=== PATIENT | female | born 1990 | race American Indian/Alaskan Native ===

== ENCOUNTER 2021-08-08 03:01 | Emergency (ER) | payer SELFPAY ==
[2021-08-08 03:06] VITALS: BP 116/73
[2021-08-08] MEDS ORDERED: predniSONE 50 MG TAB PO STA (03:35)
[2021-08-08] MEDS ORDERED: IPRATROPIUM/ALBUTEROL SULFATE 3 ML AMPUL.NEB IH ONE (03:35)
[2021-08-08] MEDS ORDERED: diphenhydrAMINE 50 MG/ML VIAL IM ONE (03:35)
[2021-08-08 04:02] LABS: Basophils # (Auto) 0.1 K/mm3 (0.0-0.1); Basophils % (Auto) 0.9 % (0.0-1.8); Eosinophils # (Auto) 0.5 K/mm3 (0.0-0.4); Eosinophils % (Auto) 5.6 % (0.0-4.3); Hematocrit 44.5 % (30.3-42.9); Hemoglobin 14.5 gm/dl (10.1-14.3); Lymphocytes # (Auto) 3.5 K/mm3 (1.2-5.4); Lymphocytes % (Auto) 38.1 % (13.4-35.0); Mean Corpuscular HGB Conc 33 % (30-34); Mean Corpuscular Volume 82 fl (79-97); Monocytes # (Auto) 0.6 K/mm3 (0.0-0.8); Monocytes % (Auto) 6.1 % (0.0-7.3); Platelet Count 208 K/mm3 (140-440); Red Blood Count 5.46 M/mm3 (3.65-5.03); Red Cell Distribution Width 13.4 % (13.2-15.2)
--- NOTE | 2021-08-08 04:16 | XRay Report ---
CHEST 2 VIEWS INDICATION / CLINICAL INFORMATION: sob. COMPARISON: None available. FINDINGS: SUPPORT DEVICES: None. HEART / MEDIASTINUM: No significant abnormality. LUNGS / PLEURA: No significant pulmonary abnormality. No significant pleural effusion. No pneumothora x. ADDITIONAL FINDINGS: No significant additional findings. IMPRESSION: 1. No acute abnormality of the chest. Signer Name: Travis Stiles MD Signed: 08/08/2021 4:12 AM Workstation Name: [id number]
[2021-08-08 04:17] LABS: Blood Urea Nitrogen 14 mg/dL (7-17); Calcium 9.2 mg/dL (8.4-10.2); Hemolysis Index 6
[2021-08-08 04:18] LABS: BUN/Creatinine Ratio 20
[2021-08-08] MEDS ORDERED: POTASSIUM CHLORIDE ER 20 MEQ TAB PO ONE (04:56)
--- NOTE | 2021-08-08 06:15 | Emergency Department Report ---
ED Asthma HPI - General Chief Complaint: Adult Asthma Stated Complaint: Shortness of breath PUI?: No Time Seen by Provider: 08/08/21 06:04 Source: patient, RN notes reviewed Mode of arrival: Ambulatory Limitations: No Limitations - History of Present Illness Initial Comments: The patient is a pleasant 31-year-old female, who reports that she is not , who reports a history of reactive airways disease/asthma, who presents to the ER today with a complaint of painless asthma exacerbation, after being exposed to a cat/feline. Patient is not COVID-19 vaccinated. She denies loss of taste and smell. Patient denies travel, surgery, immobilization, leg pain or leg swelling. She denies a personal/family history of DVT/PE. She was medicated prior to my personal evaluation, and reports that she feels back to her baseline, and reports readiness for discharge. MD Complaint: "asthma attack", shortness of breath, wheezing -: Sudden Asthma History: childhood onset Severity: moderate Context: pet exposure - Related Data Previous Rx's Medication Instructions Recorded Last Taken Type Albuterol Sulfate [Proair 90 mcg IH Q4HR PRN #2 aer.pow.ba 08/08/21 Unknown Rx Respiclick] EPINEPHrine [Epipen 2-Gilberto] 0.3 mg IM DAILY PRN #2 ml 08/08/21 Unknown Rx Potassium Chloride [K-Dur] 20 meq PO BID #30 tab 08/08/21 Unknown Rx predniSONE [Deltasone] 40 mg PO QDAY #8 tab 08/08/21 Unknown Rx Allergies Allergy/AdvReac Type Severity Reaction Status Date / Time azithromycin [From Zithromax] Allergy Hives Verified 08/08/21 03:03 ibuprofen Allergy Hives Verified 08/08/21 03:03 ED Review of Systems ROS: Stated complaint: TROUBLE BREATHING Other details as noted in HPI Constitutional: denies: fever Eyes: denies: eye discharge ENT: congestion Respiratory: cough, shortness of breath Cardiovascular: denies: syncope Gastrointestinal: denies: abdominal pain Musculoskeletal: denies: back pain Neurological: denies: weakness Hematological/Lymphatic: denies: easy bleeding ED Past Medical Hx - Past Medical History Hx Asthma: Yes - Surgical History Past Surgical History?: No - Medications Home Medications: Home Medications Medication Instructions Recorded Confirmed Last Taken Type Albuterol Sulfate [Proair 90 mcg IH Q4HR PRN #2 aer.pow.ba 08/08/21 Unknown Rx Respiclick] EPINEPHrine [Epipen 2-Gilberto] 0.3 mg IM DAILY PRN #2 ml 08/08/21 Unknown Rx Potassium Chloride [K-Dur] 20 meq PO BID #30 tab 08/08/21 Unknown Rx predniSONE [Deltasone] 40 mg PO QDAY #8 tab 08/08/21 Unknown Rx ED Physical Exam - General Limitations: No Limitations General appearance: alert, in no apparent distress - Head Head exam: Present: atraumatic, normocephalic - Eye Eye exam: Present: normal appearance, EOMI. Absent: nystagmus - ENT ENT exam: Present: normal exam, normal orophraynx, mucous membranes moist, normal external ear exam - Neck Neck exam: Present: normal inspection, full ROM. Absent: tenderness, meningismus - Respiratory Respiratory exam: Present: normal lung sounds bilaterally. Absent: respiratory distress, wheezes, rales, rhonchi, stridor, decreased breath sounds - Cardiovascular Cardiovascular Exam: Present: regular rate, normal rhythm, normal heart sounds. Absent: bradycardia, tachycardia, irregular rhythm, systolic murmur, diastolic murmur, rubs, gallop - GI/Abdominal GI/Abdominal exam: Present: soft, normal bowel sounds. Absent: distended, tenderness, guarding, rebound, rigid, pulsatile mass - Extremities Exam Extremities exam: Present: normal inspection, full ROM, other (2+ pulses noted in the bilateral upper and lower extremities. There is no palpable cord. negative Homans sign. Muscular compartments are soft. The pelvis is stable.). Absent: pedal edema, calf tenderness - Back Exam Back exam: Present: normal inspection, full ROM. Absent: tenderness, CVA tenderness (R), CVA tenderness (L), paraspinal tenderness, vertebral tenderness - Neurological Exam Neurological exam: Present: alert, oriented X3, normal gait, other (No facial droop. Tongue midline. Extraocular movements intact bilaterally. Facial sensation intact to light touch in V1, V2, V3 distribution bilaterally. 5 and a 5 strength in 4 extremities. Sensation intact to light touch in 4 ex tremities.). Absent: motor sensory deficit - Psychiatric Psychiatric exam: Present: normal affect, normal mood - Skin Skin exam: Present: warm, dry, intact, normal color. Absent: rash ED Course Vital Signs 08/08/21 08/08/21 03:03 06:46 Temperature 98.2 F Pulse Rate 79 Respiratory 18 Rate Blood Pressure 116/73 [Right] O2 Sat by Pulse 100 Oximetry O2 Sat by Pulse 99 Oximetry [ Digit-Finger] - Pulse Oximetry Interpretation Digit-Finger Initial Pulse Oximetry Readin O2 Sat by Pulse Oximetry: 99 Actions Taken: none ED Medical Decision Making - Lab Data Result diagrams: 08/08/21 03:50 08/08/21 03:50 Vital Signs 08/08/21 03:03 Temperature 98.2 F Pulse Rate 79 Respiratory 18 Rate Blood Pressure 116/73 [Right] O2 Sat by Pulse 100 Oximetry Lab Results 08/08/21 08/08/21 08/08/21 Range/Units 03:50 03:50 03:50 WBC 9.2 (4.5-11.0) K/mm3 RBC 5.46 H (3.65-5.03) M/mm3 Hgb 14.5 H (10.1-14.3) gm/dl Hct 44.5 H (30.3-42.9) % MCV 82 (79-97) fl MCH 27 L (28-32) pg MCHC 33 (30-34) % RDW 13.4 (13.2-15.2) % Plt Count 208 (140-440) K/mm3 Lymph % (Auto) 38.1 H (13.4-35.0) % Kaufman % (Auto) 6.1 (0.0-7.3) % Eos % (Auto) 5.6 H (0.0-4.3) % Baso % (Auto) 0.9 (0.0-1.8) % Lymph # (Auto) 3.5 (1.2-5.4) K/mm3 Kaufman # (Auto) 0.6 (0.0-0.8) K/mm3 Eos # (Auto) 0.5 H (0.0-0.4) K/mm3 Baso # (Auto) 0.1 (0.0-0.1) K/mm3 Seg Neutrophils % 49.3 (40.0-70.0) % Seg Neutrophils # 4.5 (1.8-7.7) K/mm3 D-Dimer 291.39 H (0-234) ng/mlDDU Sodium 138 (137-145) mmol/L Potassium 2.8 L* (3.6-5.0) mmol/L Chloride 98.5 (98-107) mmol/L Carbon Dioxide 21 L (22-30) mmol/L Anion Gap 21 mmol/L BUN 14 (7-17) mg/dL Creatinine 0.7 (0.6-1.2) mg/dL Estimated GFR > 60 ml/min BUN/Creatinine Ratio 20 % Glucose 102 H (65-100) mg/dL Calcium 9.2 (8.4-10.2) mg/dL - EKG Data -: EKG Interpreted by Nc EKG shows normal: sinus rhythm Rate: normal - EKG Data When compared to previous EKG there are: previous EKG unavailable 08/08/21 06:40 The EKG is interpreted at 06: 2 2 No prior available for comparison. Sinus rhythm, rate 74 bpm. Normal axis, QTC 4 4 6 ms. Motion artifact. Not a STEMI. Unremarkable EKG - Radiology Data Radiology results: pending, report reviewed, image reviewed CHEST 2 VIEWS INDICATION / CLINICAL INFORMATION: sob. COMPARISON: None available. FINDINGS: SUPPORT DEVICES: None. HEART / MEDIASTINUM: No si gnificant abnormality. LUNGS / PLEURA: No significant pulmonary abnormality. No significant pleural effusion. No pneumothorax. ADDITIONAL FINDINGS: No significant additional findings. IMPRESSION: 1. No acute abnormality of the chest. Signer Name: Travis Stiles MD Signed: 08/08/2021 3:12 AM Workstation Name: [id number] - Medical Decision Making Differential diagnosis, including but not limited to: Reactive airways disease, now resolved Bronchitis, pneumonia, mild allergic reaction Assessment and plan: 31-year-old female, who reports that she is not , w ho reports that she has not delivered her given within the past 6 weeks, who denies oral contraceptive use, travel, surgery, immobilization, leg pain or leg swelling, denies DVT/pulmonary embolism risk factors and personal/family history of DVT and PE, who is not currently tachycardic, tachypneic or hypoxic, who is low risk by Wells criteria for pulmonary embolism and who is PERC negative, who presents to the ER today with what appears to be a resolved reactive airways disease exacerbation, in the context of exposure to a feline. On my initial assessment, the patient is afebrile, with reassuring vital signs, saturating 100% on room air, heart rate 73 bpm, on a cellular phone, and in no acute distress. X-ray the chest, laboratory studies were obtained prior to my personal evaluation of this patient. For unclear reasons, a D-dimer was sent prior to my personal evaluation of this patient, and is elevated. I suspect that this is a falsely elevated/false negative D-dimer. I had extensive discussion with the patient regarding elevated D-dimer, and my suspicion that it is a falsely elevated D-dimer. I did offer the patient a CT angiogram of the chest, but I further offered that I did not think this test is medically necessary, and I also recommended that a CT angiogram would pose significant risk to the patient in terms of cancer risk, specifically thyroid and breast cancer. We discussed the risks, benefits and alternatives of CTA chest, versus the possibility of a pulmonary embolism, which I think is unlikely. The patient does not want to have a CT angiogram chest, and I think that this is reasonable. Therefore, through shared decision-making, CT angiogram chest canceled. At the moment, the patient is medically suitable for discharge at this time, this is most likely reactive airways disease. Of note, this patient is not COVID-19 vaccinated, and I recommended that she complete outpatient COVID-19 vaccination series. Patient on cell phone, in no acute distress at the time of discharge Critical care attestation.: If time is entered above; I have spent that time in minutes in the direct care of this critically ill patient, excluding procedure time. ED Disposition Clinical Impression: Reactive airway disease, Hypokalemia, COVID-19 vaccination not done Disposition: 01 HOME / SELF CARE / HOMELESS Is pt being admited?: No Does the pt Need Aspirin: No Condition: Good Instructions: Asthma, Adult, Hypokalemia Additional Instructions: Recommend that patient complete outpatient COVID-19 vaccination series. Recommend that patient follow-up with a primary care doctor in the next 5 days. Recommend that patient avoid exposure to few lines, and known triggers to asthma/reactive airways disease. Patient is found to have low potassium, patient may take the potassium supplementation, or consume foods such as potatoes, avocado, and banana. Use the albuterol as directed, and prednisone as directed. Use the epinephrine pen only if patient develops inability to speak, or inability to breathe. Please return to the emergency room right away with new pain, worsened pain, migration of pain, projectile vomiting, change in mental status, confusion, inability tolerate liquid feeds, new, worsened or different symptoms not present on the initial emergency room evaluation Prescriptions: predniSONE [Deltasone] 40 mg PO QDAY #8 tab EPINEPHrine [Epipen 2-Gilberto] 0.3 mg IM DAILY PRN #2 ml PRN Reason: Allergic Reaction Potassium Chloride [K-Dur] 20 meq PO BID #30 tab Albuterol Sulfate [Proair Respiclick] 90 mcg IH Q4HR PRN #2 aer.pow.ba PRN Reason: Wheezing Referrals: [facility] [Provider Group] - 3-5 Days Forms: Work/School Release Form(ED)
--- NOTE | 2021-08-08 13:31 | Electrocardiograph Report ---
[facility] Test Date: 2021-08-08 Test Time: 06:22:47 Pat Name: JULIO DELEON Department: Room: Gender: F [employer] Associate: AUDRA : 1990 Requested By: JEWELS MENDEZ Order Number: [id number] Reading MD: Isabel Luther Measurements Intervals [place] Rate: 74 P: 44 VA: 164 QRS: 34 QRSD: 105 T: 38 QT: 403 QTc: 446 Interpretive Statements Sinus rhythm No previous ECG available for comparison Electronically Signed On 08-08-2021 13:31:06 EST by Isabel Luther
== END 2021-08-08 08:51 | disposition home or self-care (01) ==
LOC: ED 03:01
DX: J45.901 Unspecified asthma with (acute) exacerbation (principal); E87.6 Hypokalemia; Z88.1 Allergy status to other antibiotic agents; Z88.8 Allergy status to other drugs, medicaments and biological substances
CPT/HCPCS: 36415; 71046; 80048; 85025; 85379; 93005; 94640; 96372; 99284; J1200; J7512